=== PATIENT | female | born 1960 | race Caucasian/White ===

== ENCOUNTER 2020-09-29 07:18 | Inpatient (IN) | payer MEDICAID ==
[~2020-09-29] VITALS: Ht 165.1 cm; Wt 54.7 kg
--- NOTE | 2020-09-29 07:42 | NUR ---
DIFFICULTY SWALLOWING FOOD. PAIN IN ESOPHAGUS W EATING. SHE HAS BEEN JUICING FOR NUTRITION FOR OVER A MONTH NOW. DENIES SORE THROAT. PT STATES SWALLOWING WARM THINGS AND LIQUID IS MUCH EASIER THAN COLD AND SOILD FOODS. PT TO ROOM WITH STEADY GAIT. POSTIONED TO COMFORT IN BED. ATTACHED TO MONITORS. VSS. DOMINGUEZ. DR. FLORES AT BEDSIDE FOR EVAULATION.
[2020-09-29 07:55] LABS: BASOPHILS % (AUTO) 1 % (0-1); EOSINOPHILS % (AUTO) 3 % (1-7); LYMPHOCYTES % (AUTO) 25 % (22-44); MEAN CORPUSCULAR HEMOGLOBIN 32.6 pg (27.0-34.8); MEAN CORPUSCULAR HGB CONC 34.5 g/dL (32.4-35.8); MEAN PLATELET VOLUME 7.2 fL (7.4-10.4); MONOCYTES % (AUTO) 10 % (2-9); NEUTROPHILS % (AUTO) 61 % (42-75); PLATELET COUNT 375 x10^3/uL (130-400); RED BLOOD COUNT 4.54 x10^6/uL (3.82-5.3); RED CELL DISTRIBUTION WIDTH 13.1 % (9.6-15.2)
[2020-09-29 07:59] LABS: MD NO
--- NOTE | 2020-09-29 08:06 | NUR ---
PT IN XRAY
[2020-09-29 08:09] LABS: ALBUMIN 3.5 g/dL (3.4-5.0); ANION GAP 6 mmol/L (5-15); CALCIUM 9.7 mg/dL (8.5-10.1); CHLORIDE 100 mmol/L (98-107); CREATININE 0.91 mg/dL (0.55-1.02)
--- NOTE | 2020-09-29 09:34 | NUR ---
MANDEEP HALL TO BEDSIDE TO DISSCUSS RESULTS.
[2020-09-29] MEDS ORDERED: SODIUM CHLORIDE FLUSH 10ML SYR IVF PRN (10:00)
[2020-09-29] MEDS ORDERED: SODIUM CHLORIDE 0.9% 1,000 ML IV ONE (10:00)
--- NOTE | 2020-09-29 10:34 | NUR ---
REPORT CALLED TO JANE CARDENAS. SON AT BEDSIDE. NADN. FONSECA.
[2020-09-29 12:33] VITALS: BP 174/96
[2020-09-29 12:40] LABS: INTERNATIONAL NORMALIZED RATIO 1.41 (0.93-1.1)
[2020-09-29] MEDS ORDERED: hydrALAzine 20 MG/ML, 1ML IVPush PRN (14:00)
[2020-09-29] MEDS ORDERED: ACETAMINOPHEN 325 MG TABLET PO PRN (14:00)
[2020-09-29] MEDS ORDERED: ONDANSETRON ODT 4 MG PO PRN (14:00)
[2020-09-29] MEDS ORDERED: BISACODYL 10 MG SUPP PR PRN (14:00)
[2020-09-29] MEDS ORDERED: ONDANSETRON 2MG/ML, 2ML IVPush PRN (14:00)
[2020-09-29] MEDS ORDERED: DOCUSATE 100 MG CAPSULE PO PRN (14:00)
[2020-09-29] MEDS ORDERED: MELATONIN 5 MG TABLET PO PRN (14:00)
[2020-09-29] MEDS ORDERED: POLYETHYLENE GLYCOL 17 GM PACKET PO PRN (14:00)
[2020-09-29] MEDS: LACTATED RINGERS 1,000 ML IV SCH (14:00)
[2020-09-29] MEDS: NICOTINE 21 MG/24 HR PATCH.TD24 TD SCH (15:00)
[2020-09-29 16:31] LABS: MICROSCOPIC INDICATED
[2020-09-29 19:03] VITALS: BP 157/90
[2020-09-29] MEDS: LORazepam 0.5MG TABLET PO PRN (19:27)
[2020-09-30 00:14] VITALS: BP 158/83
[2020-09-30] MEDS: LACTATED RINGERS 1,000 ML IV SCH ×2 (05:26→19:40)
[2020-09-30 05:38] LABS: BASOPHILS % (AUTO) 1 % (0-1); EOSINOPHILS % (AUTO) 4 % (1-7); LYMPHOCYTES % (AUTO) 32 % (22-44); MEAN CORPUSCULAR HEMOGLOBIN 32.2 pg (27.0-34.8); MEAN CORPUSCULAR HGB CONC 34.3 g/dL (32.4-35.8); MEAN PLATELET VOLUME 7.5 fL (7.4-10.4); MONOCYTES % (AUTO) 10 % (2-9); NEUTROPHILS % (AUTO) 54 % (42-75); PLATELET COUNT 333 x10^3/uL (130-400); RED BLOOD COUNT 4.32 x10^6/uL (3.82-5.3); RED CELL DISTRIBUTION WIDTH 12.8 % (9.6-15.2)
[2020-09-30 05:39] LABS: MD NO
[2020-09-30 05:45] LABS: CHLORIDE 99 mmol/L (98-107)
[2020-09-30 06:07] LABS: ALANINE AMINOTRANSFERASE 17 U/L (12-78); ALBUMIN 3.2 g/dL (3.4-5.0); ALKALINE PHOSPHATASE 28 U/L (45-117); ANION GAP 7 mmol/L (5-15); BILIRUBIN,TOTAL 0.7 mg/dL (0.2-1.0); CALCIUM 9.5 mg/dL (8.5-10.1); CHOL/HDL RATIO 2.5; CHOLESTEROL, TOTAL 109 mg/dL (140-239); CREATININE 0.74 mg/dL (0.55-1.02); HDL CHOL % 39 % (28-40); HDL CHOLESTEROL (DIRECT) 43 mg/dL (40-60); LDL CHOLESTEROL,CALCULATED 54 mg/dL (54-169); LDL/HDL RATIO 1.3 (0.5-3.0); TOTAL PROTEIN 7.1 g/dL (6.4-8.2); TRIGLYCERIDES 60 mg/dL (50-200); VLDL CHOLESTEROL 12 mg/dL (0-25)
[2020-09-30 06:25] VITALS: BP 158/98
[2020-09-30] MEDS: PANTOPRAZOLE 40 MG IV IVPush SCH (08:35)
[2020-09-30] MEDS ORDERED: NICOTINE 21 MG/24 HR PATCH.TD24 TD SCH (09:00)
[2020-09-30] MEDS ORDERED: CHLORHEXIDINE 15 ML UDC ONE (10:41)
[2020-09-30] MEDS ORDERED: morphine SULFATE 10 MG/ML, 1ML IVPush PRN (11:00)
[2020-09-30] MEDS ORDERED: ONDANSETRON 2MG/ML, 2ML IVPush PRN (11:00)
[2020-09-30] MEDS ORDERED: EPHEDRINE 50 MG/ML, 1ML IM PRN (11:00)
[2020-09-30] MEDS ORDERED: PROMETHAZINE 25 MG/ML, 1ML IVPush PRN (11:00)
[2020-09-30] MEDS ORDERED: MEPERIDINE/PF 25MG/0.5ML IVPush PRN (11:00)
[2020-09-30] MEDS ORDERED: DIPHENHYDRAMINE 50 MG/ML, 1ML IVPush PRN (11:00)
[2020-09-30] MEDS ORDERED: OXYcodone 5 MG/5 ML ORAL.SOL UDC PO PRN (11:00)
[2020-09-30] MEDS ORDERED: DIAZEPAM 5 MG/ML, 2ML IVPush PRN (11:00)
[2020-09-30] MEDS ORDERED: FENTANYL PF 100 MCG/2ML IV PRN (11:00)
[2020-09-30] MEDS ORDERED: LABETALOL 5MG/ML, 20ML IV PRN (11:00)
[2020-09-30] MEDS ORDERED: EPHEDRINE 50 MG/ML, 1ML IVPush PRN (11:00)
[2020-09-30] MEDS ORDERED: PROPOFOL 50 ML ONE (11:05)
[2020-09-30] MEDS ORDERED: PROPOFOL 10 MG/ML, 20ML ONE (11:05)
[2020-09-30 12:43] VITALS: BP 132/81
[2020-09-30] MEDS: NICOTINE 21 MG/24 HR PATCH.TD24 TD SCH (16:05)
[2020-09-30] MEDS ORDERED: OMNIPAQUE 350 MG/ML, 150 ML BOTTLE ONE (17:09)
[2020-09-30 19:49] VITALS: BP 165/84
[2020-10-01 00:54] VITALS: BP 144/79
[2020-10-01 06:04] LABS: BASOPHILS % (AUTO) 1 % (0-1); EOSINOPHILS % (AUTO) 2 % (1-7); LYMPHOCYTES % (AUTO) 22 % (22-44); MD NO; MEAN CORPUSCULAR HEMOGLOBIN 31.9 pg (27.0-34.8); MEAN CORPUSCULAR HGB CONC 34.1 g/dL (32.4-35.8); MEAN PLATELET VOLUME 7.2 fL (7.4-10.4); MONOCYTES % (AUTO) 9 % (2-9); NEUTROPHILS % (AUTO) 67 % (42-75); PLATELET COUNT 330 x10^3/uL (130-400); RED BLOOD COUNT 4.32 x10^6/uL (3.82-5.3); RED CELL DISTRIBUTION WIDTH 12.8 % (9.6-15.2)
[2020-10-01 06:13] LABS: ANION GAP 4 mmol/L (5-15); CALCIUM 9.4 mg/dL (8.5-10.1); CHLORIDE 100 mmol/L (98-107)
[2020-10-01 07:18] VITALS: BP 153/78
[2020-10-01] MEDS: LACTATED RINGERS 1,000 ML IV SCH (08:10)
[2020-10-01] MEDS: PANTOPRAZOLE 40 MG IV IVPush SCH (08:28)
[2020-10-01] MEDS: LORazepam 0.5MG TABLET PO PRN (10:00)
[2020-10-01 13:26] VITALS: BP 138/82
[2020-10-01] MEDS ORDERED: LISI-167 PO (13:30)
[2020-10-01] MEDS ORDERED: NICO-587 TD (13:30)
[2020-10-01] MEDS ORDERED: LISINOPRIL 20 MG TABLET PO SCH (14:00)
== END 2020-10-01 14:00 | disposition home or self-care (01) | DRG 375 ==
LOC: ED 07:52 → EDIP 09:42 → 3N 10:28
PROVIDERS: ADMIT Family Medicine; ATTEND Internal Medicine
PROC: 0DB18ZX Excision of Upper Esophagus, Via Natural or Artificial Opening Endoscopic, Diagnostic (ICD-10-PCS; principal; 2020-09-30 11:00)
DX: C15.3 Malignant neoplasm of upper third of esophagus (principal); E87.1 Hypo-osmolality and hyponatremia; B19.20 Unspecified viral hepatitis C without hepatic coma; F17.210 Nicotine dependence, cigarettes, uncomplicated; G89.29 Other chronic pain; I11.0 Hypertensive heart disease with heart failure; I50.9 Heart failure, unspecified; L08.9 Local infection of the skin and subcutaneous tissue, unspecified; R13.14 Dysphagia, pharyngoesophageal phase; Z20.822 Contact with and (suspected) exposure to COVID-19; M54.31 Sciatica, right side; Z86.73 Personal history of transient ischemic attack (TIA), and cerebral infarction without residual deficits; Z79.899 Other long term (current) drug therapy
CPT/HCPCS: 36415; 70491; 70551; 71046; 71260; 74177; 74220; 76700; 80048; 80053; 80061; 81001; 82040; 82105; 83036; 83735; 84100; 84443; 85025; 85610; 86705; 86706; 86708; 86803; 87340; 87521; 87635; 88305; 93005; 93306; 93880; 99285; G0378; J2704; Q9967; C9113; J7030; J7120

== ENCOUNTER → 2020-10-15 | Outpatient (CLI) | payer MEDICAID ==
[~2020-10-15] MED LIST: LISI-167 PO; NICO-587 TD
== END | disposition home or self-care (01) ==
LOC: ROC 09:07
PROVIDERS: ATTEND Radiology Radiation Oncology
DX: C15.3 Malignant neoplasm of upper third of esophagus (principal); I11.0 Hypertensive heart disease with heart failure; I50.9 Heart failure, unspecified; E87.1 Hypo-osmolality and hyponatremia; G89.29 Other chronic pain; Z87.891 Personal history of nicotine dependence
CPT/HCPCS: 99214; G0463

== ENCOUNTER → 2020-11-04 | Outpatient (CLI) | payer MEDICAID | END | disposition home or self-care (01) | LOC: PETCFH 10-29 08:25 | PROVIDERS: ATTEND Pathology Hematology | DX: C15.3 Malignant neoplasm of upper third of esophagus (principal); K22.8 Other specified diseases of esophagus; M47.816 Spondylosis without myelopathy or radiculopathy, lumbar region | CPT/HCPCS: 78815; A9552 ==

== ENCOUNTER 2021-01-28 08:08 | Outpatient (CLI) | payer MEDICAID | END 2021-01-28 23:59 | disposition home or self-care (01) | LOC: ROC 08:08 | PROVIDERS: ATTEND Radiology Radiation Oncology | DX: Z08 Encounter for follow-up examination after completed treatment for malignant neoplasm (principal); Z85.01 Personal history of malignant neoplasm of esophagus; I11.0 Hypertensive heart disease with heart failure; I50.9 Heart failure, unspecified; E87.1 Hypo-osmolality and hyponatremia; G89.29 Other chronic pain; Z79.899 Other long term (current) drug therapy; Z87.891 Personal history of nicotine dependence | CPT/HCPCS: 99213; G0463 ==